=== PATIENT | female | born 1985 | race Hispanic/Latino ===

== ENCOUNTER 2024-02-18 23:12 | Emergency (ER) | payer SELFPAY ==
[2024-02-18] MEDS ORDERED: Dexamethasone 10 MG/ML VIAL ONE (23:35)
[2024-02-18] MEDS ORDERED: hydrOXYzine 25 MG TAB ONE (23:41)
[2024-02-18] MEDS ORDERED: Famotidine 20 MG TAB ONE (23:41)
== END 2024-02-18 23:58 | disposition home or self-care (01) ==
LOC: MADERS 23:12
DX: T78.40XA Allergy, unspecified, initial encounter (principal); G43.909 Migraine, unspecified, not intractable, without status migrainosus
CPT/HCPCS: 96372; 99283; J1100